=== PATIENT | female | born 1960 | race Caucasian/White ===

== ENCOUNTER 2019-07-24 14:36 | Emergency (ER) | payer OTHER ==
[2019-07-24 15:15] VITALS: TEMP 98; BMI 38.9
--- NOTE | 2019-07-24 15:16 | PDOC ---
Rapid Medical Evaluation Time Seen by Provider: 07/24/19 15:13 Medical Evaluation: Allergies Allergy/AdvReac Type Severity Reaction Status Date / Time No Known Allergies Allergy Verified 10/10/15 16:45 07/24/19 15:13 I have performed a brief in-person evaluation of this patient. The patient presents with a chief complaint of:Constipation. Last BM 4 days ago. Now w/ abd pain and nausea. No rectal pain, pressure, BRBPR, f/c. No new medications and not on narcotics. Denies pmhx and no scopes in past Pertinent physical exam findings:norman mildly uncomfortable, stable I have ordered the following:nothing The patient will proceed to the ED for further evaluation. 07/24/19 15:15 Discharge Disposition - Diagnosis Constipation Qualifiers: Constipation type: unspecified constipation type Qualified Code(s): K59.00 - Constipation, unspecified - Referrals - Patient Instructions - Post Discharge Activity
[2019-07-24] MEDS ORDERED: SODIUM PHOSPHATE/NA BIPHOS 133 ML ENEMA PR ONE (16:29)
[2019-07-24] MEDS ORDERED: MAGNESIUM CITRATE 300 ML BOTTLE PO ONE (16:29)
--- NOTE | 2019-07-24 16:32 | PDOC ---
History of Present Illness - General Chief Complaint: Constipation Stated Complaint: ABD PAIN Time Seen by Provider: 07/24/19 15:13 History Source: Patient Exam Limitations: No Limitations - History of Present Illness Initial Comments: 07/24/19 16:30 59y F with no significant PMH presenting to ED for constipation. Patient states last BM was 3d ago on Monday and stated it was hard and small. Denied blood. She has been constipated before with symptoms resolving with Senna. She said she took 2 ex-lax pills yesterday only which did not help. She endorses abdominal discomfort and nausea. Denies vomiting, anorexia, fevers, chills, headache, chest pain, back pain, sob, urinary symptoms. Her diet is mainly carbs without much fiber intake. PMD: PMH: see hpi PSH: Meds: none Allergies: nkda Past History - Past Medical History Allergies/Adverse Reactions: Allergies Allergy/AdvReac Type Severity Reaction Status Date / Time No Known Allergies Allergy Verified 07/24/19 15:15 Home Medications: Ambulatory Orders No Known Home Medication 10/10/15 COPD: No - Psycho Social/Smoking Cessation Hx Smoking History: Never smoked Number of Cigarettes Smoked Daily: 10 'Breaking Loose' booklet given: 10/10/15 Hx Alcohol Use: No Drug/Substance Use Hx: No Substance Use Type: None Review of Systems - Review of Systems Constitutional: No: Symptoms Reported HEENTM: No: Symptoms Reported Respiratory: No: Symptoms reported Cardiac (ROS): No: Symptoms Reported ABD/GI: Yes: Constipated, Nausea, Abdominal cramping. No: Rectal Bleeding, Vomiting, Tarry Stools : No: Symptoms Reported Musculoskeletal: No: Symptoms Reported Integumentary: No: Symptoms Reported Neurological: No: Symptoms reported *Physical Exam - Vital Signs Last Vital Signs Temp Pulse Resp BP Pulse Ox 98 F 82 18 163/76 99 07/24/19 15:13 07/24/19 15:13 07/24/19 15:13 07/24/19 15:13 07/24/19 15:13 - Physical Exam General Appearance: Yes: Appropriately Dressed, Obese. No: Apparent Distress HEENT: positive: EOMI, JERRICA Neck: positive: Trachea midline, Supple. negative: Lymphadenopathy (R), Lymphadenopathy (L) Respiratory/Chest: positive: Lungs Clear, Normal Breath Sounds Cardiovascular: positive: Regular Rhythm, Regular Rate Gastrointestinal/Abdominal: positive: Normal Bowel Sounds, Soft. negative: Tender, Increased Bowel Sounds, Distended, Guarding, Rebound, Hernia, Mass Musculoskeletal: negative: CVA Tenderness Extremity: positive: Normal Capillary Refill Integumentary: positive: Normal Color, Dry, Warm Neurologic: positive: educator senior clinical II-XII NML intact, Fully Oriented, Alert, Normal Mood/ Affect, Normal Response, Motor Strength 11/18 ED Treatment Course - LABORATORY CBC & Chemistry Diagram: 07/24/19 18:44 07/24/19 18:44 Medical Decision Making - Medical Decision Making 07/24/19 19:06 59y F presenting to ED for constipation x4d. vitals wnl soft abdomen without tenderness. low suspicion for sbo, likely constipation due to poor diet. will treat with enema and mag citrate. pt got enema, went to bathroom and stated she had some stool output. getting mag citrate. abdominal xray performed: air seen in bowels, no signs of volvulus or air/fluid levels. upon attending exam, pt was tender. will perform basic labs and get CTAP with iv contrast. signed out to Dr. Gardner for f/u labs and CT. Discharge - Discharge Information Problems reviewed: Yes Clinical Impression/Diagnosis: Constipation Qualifiers: Constipation type: unspecified constipation type Qualified Code(s): K59.00 - Constipation, unspecified Condition: Stable - Follow up/Referral - Patient Discharge Instructions Patient Printed Discharge Instructions: DI for Constipation, Constipation ( Alternative Therapy) - Post Discharge Activity
[2019-07-24] MEDS ORDERED: MAGNESIUM CITRATE 300 ML BOTTLE ONE (16:40)
[2019-07-24 18:52] LABS: BASO % 0.6 % (0-2.0); EOS % 4.4 % (0-4.5); HEMATOCRIT 43.5 % (32.4-45.2); HEMOGLOBIN 14.2 GM/dL (10.7-15.3); LYMPH % 18.4 % (8-40); MCH 29.2 pg (25.7-33.7); MCHC 32.7 g/dl (32.0-36.0); MEAN CELL VOLUME 89.3 fl (80-96); MEAN PLT VOLUME 8.1 fl (7.5-11.1); MONO % 5.2 % (3.8-10.2); NEUT % 71.4 % (42.8-82.8); PLATELET COUNT 298 K/MM3 (134-434); RBC 4.87 M/mm3 (3.60-5.2); RDW 15.1 % (11.6-15.6); WHITE BLOOD COUNT 10.6 K/mm3 (4.0-10.0)
--- NOTE | 2019-07-24 18:55 | PDOC ---
Documentation entered by Jadyn Cuellar SCRIBE, acting as scribe for Claudia Lopez MD. Claudia Lopez MD: This documentation has been prepared by the Polo maya Xhesika, SCRIBE, under my direction and personally reviewed by me in its entirety. I confirm that the documentation accurately reflects all work, treatment, procedures, and medical decision making performed by me. Attending Attestation - Resident Resident Name: Hayley Bocanegra - ED Attending Attestation I have performed the following: I have examined & evaluated the patient, The case was reviewed & discussed with the resident, I agree w/resident's findings & plan, Exceptions are as noted - HPI HPI: 07/24/19 17:20 The patient is a 59 year old female with no significant PMH of who presents to the emergency department for 4 days of constipation. Pt states she had a BM 3 days ago (Monday) but stated it was hard and small amount of stool. Since then she is reporting abdominal discomfort, particularly on the left side of the abdomen She denies fevers or chills Although she has had constipation in the past, typically resolves by this point especially since she already took 2 Ex-Lax tablets yesterday. Pt reports associated abdominal discomfort. The patient denies chest pain, shortness of breath, headache and dizziness. Denies fever, chills, cough, nausea, vomiting, diarrhea. Denies dysuria, frequency, urgency and hematuria. Allergies: NKDA 07/24/19 18:49 - Physicial Exam PE: 07/24/19 18:50 GENERAL: The patient is in no acute distress. ENT: Ears normal, nares patent, oropharynx clear without exudates. Moist mucous membranes. NECK: Normal range of motion, supple LUNGS: Breath sounds equal, clear to auscultation bilaterally. No wheezes, and no crackles. HEART:Regular rate and rhythm, normal S1 and S2 without murmur, rub or gallop. ABDOMEN: Soft, protuberant, tender to palpation in the left side of the abdomen , no involuntary guarding, no rebound EXTREMITIES: Normal range of motion, no edema. NEUROLOGICAL: Cranial nerves II through XII grossly intact. Normal speech. No focal neurological deficits. SKIN: Warm, Dry, normal turgor, no rashes or lesions noted. - Medical Decision Making 07/24/19 18:50 59-year-old female presenting to the emergency department with a complaint of abdominal pain Patient is tender to palpation Will do: Labs CT of the abdomen -rule out colitis/obstruction ReAssess signed out to overnight team
--- NOTE | 2019-07-24 19:07 | PDOC ---
History of Present Illness - General Chief Complaint: Constipation Stated Complaint: ABD PAIN Time Seen by Provider: 07/24/19 15:13 - History of Present Illness Initial Comments: 07/24/19 19:06 Patient signed out by resident Dr. Bocanegra In short this patient is 59 years old with a prior surgical history who presents with 4 days of BM and diffuse abdominal tenderness. In the ED she was given an enema and mag citrate Pending labs and CT ED Course: Past History - Past Medical History Allergies/Adverse Reactions: Allergies Allergy/AdvReac Type Severity Reaction Status Date / Time No Known Allergies Allergy Verified 07/24/19 15:15 Home Medications: Ambulatory Orders Ondansetron [Zofran -] 4 mg PO BID #14 tablet 07/24/19 Polyethylene Glycol 3350 [Miralax (For Bowel Prep) -] 17 gm PO DAILY #1 bottle 07/24/19 COPD: No - Psycho Social/Smoking Cessation Hx Smoking History: Never smoked Number of Cigarettes Smoked Daily: 10 Information on smoking cessation initiated: No 'Breaking Loose' booklet given: 10/10/15 Hx Alcohol Use: No Drug/Substance Use Hx: No Substance Use Type: None *Physical Exam - Vital Signs Last Vital Signs Temp Pulse Resp BP Pulse Ox 98 F 82 18 163/76 99 07/24/19 15:13 07/24/19 15:13 07/24/19 15:13 07/24/19 15:13 07/24/19 15:13 ED Treatment Course - LABORATORY CBC & Chemistry Diagram: 07/24/19 18:44 07/24/19 18:44 - ADDITIONAL ORDERS Additional order review: 07/24/19 18:44 RBC 4.87 MCV 89.3 MCHC 32.7 RDW 15.1 MPV 8.1 Neutrophils % 71.4 Lymphocytes % 18.4 Monocytes % 5.2 Eosinophils % 4.4 Basophils % 0.6 - Medications Given in the ED: ED Medications Discontinued Medications Generic Name Dose Route Start Last Admin Trade Name Freq PRN Reason Stop Dose Admin Magnesium Citrate 300 ml 07/24/19 16:29 07/24/19 16:54 Citroma - PO 07/24/19 16:30 300 ml ONCE ONE Administration Sodium Phosphate 133 ml 07/24/19 16:29 07/24/19 16:54 Fleet Adult Rectal Enema - RI 07/24/19 16:30 133 ml ONCE ONE Administration Discharge - Discharge Information Problems reviewed: Yes Clinical Impression/Diagnosis: Constipation Qualifiers: Constipation type: unspecified constipation type Qualified Code(s): K59.00 - Constipation, unspecified Condition: Stable - Follow up/Referral Referrals: Ranjith Heath MD [Primary Care Provider] - - Patient Discharge Instructions Patient Printed Discharge Instructions: Constipation (Alternative Therapy), DI for Constipation Additional Instructions: You were seen in the ER for complaints of constipation and abdominal pain Your labwork and imaging did not show any significant findings requiring admission to the hospital You should follow up with your Family Doctor within 1 week. You have a prescription for anti nausea medication and constipation medication Return to the ER if you experience worsening abdominal pain, nausea, vomiting, fever or any other concerning symptoms. - Post Discharge Activity
[2019-07-24 19:40] LABS: ALBUMIN 3.9 g/dl (3.4-5.0); BILIRUBIN,TOTAL 0.7 mg/dL (0.2-1); BLOOD UREA NITROGEN 10.1 mg/dL (7-18); CALCIUM 9.1 mg/dL (8.5-10.1); CREATININE 0.7 mg/dL (0.55-1.3); POTASSIUM 4.5 mmol/L (3.5-5.1); TOT PROT 7.8 g/dl (6.4-8.2)
[2019-07-24 20:20] LABS: EPI CELLS 3.4 /HPF (0-5/HPF); HYALINE CASTS 1 /lpf (0-8); PH,URINE 5.5 (5.0-8.0); URINE APPEARANCE CLOUDY; URINE BACTERIA 48.9 /hpf (NEGATIVE); URINE BILIRUBIN NEGATIVE (NEGATIVE); URINE COLOR YELLOW; URINE GLUCOSE (UA) NEGATIVE (NEGATIVE); URINE KETONE 1+ (NEGATIVE); URINE LEUK ESTERASE NEGATIVE (NEGATIVE); URINE NITRITE NEGATIVE (NEGATIVE); URINE PROTEIN NEGATIVE (NEGATIVE); URINE WBC 2 /hpf (0-5)
[2019-07-24 20:44] LABS: URINE RBC 112.3 /hpf (0-4)
[2019-07-24 21:31] VITALS: BP 141/67; PULSE 68
[2019-07-24] MEDS ORDERED: ONDANSETRON 4 MG/2 ML VIAL IVPUSH ONE (22:17)
[2019-07-24] MEDS ORDERED: ONDANSETRON 4 MG/2 ML VIAL ONE (22:23)
== END 2019-07-24 23:08 | disposition home or self-care (01) ==
LOC: JER 14:36
DX: K59.00 Constipation, unspecified (principal)
CPT/HCPCS: 36415; 74019-TC-FY; 74177-TC; 80053; 81003; 85025; 87077; 87086; 99283-25; Q9967